=== PATIENT | male | born 1985 | race Asian ===

== ENCOUNTER 2018-06-11 09:56 | Day surgery (SDC) | payer OTHER ==
[~2018-06-11 09:56] MED LIST: CEFAZOLIN 2 GM/50 ML (PMX) 50 ML IVPB; LIDOCAINE 2% (SDV) 5 ML INJ; SEVOFLURANE 15 MIN; SOD CHLORIDE 0.9% 1,000 ML IV
[2018-06-11] MEDS ORDERED: HYDROmorphONE 1 MG/5 ML IV SYRINGE IV ×2 (10:30)
[2018-06-11] MEDS ORDERED: MEPERIDINE 25 MG INJ IV (10:30)
[2018-06-11] MEDS ORDERED: LABETALOL HCL 20MG INJ IV (10:30)
[2018-06-11] MEDS ORDERED: FENTAnyl 50 MCG/ML VIAL IV ×2 (10:30)
[2018-06-11] MEDS ORDERED: hydrALAzine 20 MG INJ IV (10:30)
[2018-06-11] MEDS ORDERED: METOCLOPRAMIDE 10 MG INJ IV (10:30)
[2018-06-11] MEDS ORDERED: ONDANSETRON 4 MG INJ IV ×2 (10:30→14:30)
[2018-06-11] MEDS ORDERED: PROPOFOL 100 ML (11:55)
[2018-06-11] MEDS ORDERED: DEXAMETHASONE 4 MG/ML 5 ML INJ (11:55)
[2018-06-11] MEDS ORDERED: FENTAnyl 50 MCG/ML VIAL (11:55)
[2018-06-11] MEDS ORDERED: MIDAZOLAM 1 MG/ML 2 ML INJ (11:55)
[2018-06-11] MEDS ORDERED: ONDANSETRON 4 MG INJ (11:55)
[2018-06-11] MEDS ORDERED: CEFAZOLIN 1 GM INJ (11:55)
[2018-06-11] MEDS ORDERED: ROCURONIUM 50 MG INJ (11:55)
[2018-06-11] MEDS ORDERED: SUGAMMADEX SODIUM 200 MG/2 ML VIAL IV (11:56)
[2018-06-11] MEDS: BUPIVACAINE 0.25%/EPI (SDV) 30 ML INJ (13:29)
[2018-06-11] MEDS ORDERED: SOD CHLORIDE 0.9% 1,000 ML IV (14:17)
[2018-06-11] MEDS ORDERED: LACTATED RINGER'S 1,000 ML IV (14:17)
[2018-06-11] MEDS ORDERED: HYDROCODONE/APAP (5/325) TAB PO (14:30)
== END 2018-06-11 15:36 | disposition home or self-care (01) ==
LOC: SDS 09:56
DX: D17.0 Benign lipomatous neoplasm of skin and subcutaneous tissue of head, face and neck (principal)
CPT/HCPCS: 11443; 88307